=== PATIENT | female | born 1985 | race Caucasian/White ===

== ENCOUNTER 2020-08-10 20:20 | Inpatient (IN) | payer OTHER ==
[~2020-08-10] VITALS: Ht 167.6 cm; Wt 100.3 kg
[2020-08-10 20:38] LABS: Basophils # (auto) 0.1 10 ^3/uL (0-0.2); Basophils % (auto) 1.1 % (0.0-2.0); Eosinophils # (auto) 0.1 10 ^3/uL (0-0.8); Eosinophils % (auto) 1.5 % (0.0-7.0); Hematocrit 38.3 % (36.0-46.0); Hemoglobin 12.8 g/dL (12.2-16.2); Lymphocytes # (auto) 2.6 10 ^3/uL (0.4-5.4); Lymphocytes % (auto) 27.5 % (10.0-50.0); Mean Corpuscular Hemoglobin 28.7 pg (28.0-32.0); Mean Corpuscular Hgb Conc. 33.5 g/dL (32.0-36.0); Mean Corpuscular Volume 85.9 fL (80.0-100.0); Monocytes # (auto) 0.6 10 ^3/uL (0-1.3); Neutrophils # (auto) 6.1 10 ^3/uL (1.6-8.6); Neutrophils % (auto) 63.9 % (37.0-80.0); Nucleated Red Blood Cells % 0.1 %; Platelet Count (auto) 391 10^3/uL (140-450); Red Blood Cells 4.47 10^6/uL (4.0-5.20); Red Cell Distribution Width 14.6 % (11.8-14.3); White Blood Cell 9.6 10^3/uL (4.4-10.8)
[2020-08-10 20:58] LABS: Albumin 3.7 g/dL (3.4-5.0); Calcium 8.6 mg/dL (8.5-10.1); Potassium 3.5 mmol/L (3.5-5.1)
[2020-08-10 21:01] LABS: BUN/Creatinine Ratio 16.3; Bilirubin, Total 0.3 mg/dL (0.2-1.0); Total Protein 7.3 g/dL (6.4-8.2)
[2020-08-10 22:53] LABS: Urine Bacteria FEW /hpf (None Seen); Urine Blood 3+ /uL (Negative); Urine Mucus FEW (None Seen); Urine Specific Gravity 1.023 (1.001-1.035); Urine WBC 51 /hpf (0 - 5)
[2020-08-11] MEDS ORDERED: IOHEXOL 300 MG/ML 100ML BOTTLE IJ ONE (00:49)
[2020-08-11] MEDS ORDERED: cefTRIAXone 1GM/50ML D5W 50 ML IV ONE (02:15)
[2020-08-11] MEDS ORDERED: NITROGLYCERIN 0.4 MG SL TAB SL PRN (02:45)
[2020-08-11] MEDS ORDERED: MORPHINE SULFATE 4 MG/ML SYR/VIAL IV PRN (02:45)
[2020-08-11] MEDS ORDERED: TEMAZEPAM 15 MG CAP PO PRN (02:45)
[2020-08-11] MEDS ORDERED: DOCUSATE SOD 100 MG CAP PO PRN (02:45)
[2020-08-11] MEDS ORDERED: MORPHINE SULF INJ 2 MG/ML SYRINGE 1ML IV PRN (02:45)
[2020-08-11] MEDS: ONDANSETRON HCL 4 MG/2 ML VIAL IV PRN ×2 (05:19→16:25)
[2020-08-11] MEDS: SODIUM CHLOR 0.9% PF (SALINE LOCK) 10ML VIAL/SYR IV SCH ×3 (06:00→21:08)
[2020-08-11] MEDS: cefTRIAXone 1GM/50ML D5W 50 ML IV SCH (09:08)
[2020-08-11 09:09] VITALS: BP 139/82
[2020-08-11] MEDS: MULTIPLE VITAMIN TAB PO SCH (09:09)
[2020-08-11] MEDS: ASCORBIC ACID 500 MG TAB PO SCH ×2 (09:09→21:08)
[2020-08-11] MEDS: ZINC SULFATE 220mg CAP or TAB PO SCH (09:09)
[2020-08-11] MEDS: ENOXAPARIN SOD 40 MG/0.4 ML SYRINGE SC SCH (09:09)
[2020-08-11] MEDS: FAMOTIDINE 20 MG TAB PO SCH ×2 (09:09→21:08)
[2020-08-11] MEDS: HYDROcodone-ACET 5/325MG TAB PO PRN ×2 (09:10→16:25)
[2020-08-11 10:56] LABS: Basophils # (auto) 0.1 10 ^3/uL (0-0.2); Basophils % (auto) 0.5 % (0.0-2.0); Eosinophils # (auto) 0 10 ^3/uL (0-0.8); Eosinophils % (auto) 0.1 % (0.0-7.0); Hematocrit 37.2 % (36.0-46.0); Hemoglobin 12.5 g/dL (12.2-16.2); Lymphocytes # (auto) 0.9 10 ^3/uL (0.4-5.4); Lymphocytes % (auto) 7.9 % (10.0-50.0); Mean Corpuscular Hemoglobin 28.9 pg (28.0-32.0); Mean Corpuscular Hgb Conc. 33.6 g/dL (32.0-36.0); Mean Corpuscular Volume 86.1 fL (80.0-100.0); Monocytes # (auto) 0.5 10 ^3/uL (0-1.3); Monocytes % (auto) 4.6 % (0.0-12.0); Neutrophils # (auto) 9.5 10 ^3/uL (1.6-8.6); Neutrophils % (auto) 86.9 % (37.0-80.0); Platelet Count (auto) 334 10^3/uL (140-450); Red Blood Cells 4.32 10^6/uL (4.0-5.20); Red Cell Distribution Width 14.7 % (11.8-14.3); White Blood Cell 10.9 10^3/uL (4.4-10.8)
[2020-08-11 11:04] LABS: Albumin 3.4 g/dL (3.4-5.0); Calcium 8.5 mg/dL (8.5-10.1); Potassium 3.8 mmol/L (3.5-5.1)
[2020-08-11 11:08] LABS: BUN/Creatinine Ratio 14.1; Bilirubin, Total 0.6 mg/dL (0.2-1.0); Total Protein 7.1 g/dL (6.4-8.2)
[2020-08-11 12:57] VITALS: BP 126/76
[2020-08-11 17:00] VITALS: BP 139/77
[2020-08-11 22:00] VITALS: BP_SYST 120; BP_SYST 127; BP_DIAS 75; BP_DIAS 83
[2020-08-12] MEDS ORDERED: MANNITOL FTV 25% 12.5 GM/50 ML 50 ML IV ONE (01:00)
[2020-08-12] MEDS: SODIUM CHLORIDE 0.9% 1,000 ML IV SCH ×2 (02:29→17:40)
[2020-08-12] MEDS: HYDROcodone-ACET 5/325MG TAB PO PRN (02:50)
[2020-08-12 05:00] VITALS: BP 121/69
[2020-08-12] MEDS: SODIUM CHLOR 0.9% PF (SALINE LOCK) 10ML VIAL/SYR IV SCH ×3 (06:01→22:08)
[2020-08-12 07:22] LABS: Basophils # (auto) 0.1 10 ^3/uL (0-0.2); Basophils % (auto) 1.1 % (0.0-2.0); Eosinophils # (auto) 0.1 10 ^3/uL (0-0.8); Eosinophils % (auto) 1.4 % (0.0-7.0); Hematocrit 37.5 % (36.0-46.0); Hemoglobin 12.6 g/dL (12.2-16.2); Lymphocytes # (auto) 1.8 10 ^3/uL (0.4-5.4); Lymphocytes % (auto) 23.1 % (10.0-50.0); Mean Corpuscular Hemoglobin 28.8 pg (28.0-32.0); Mean Corpuscular Hgb Conc. 33.6 g/dL (32.0-36.0); Mean Corpuscular Volume 85.7 fL (80.0-100.0); Monocytes # (auto) 0.6 10 ^3/uL (0-1.3); Monocytes % (auto) 8.2 % (0.0-12.0); Neutrophils # (auto) 5.1 10 ^3/uL (1.6-8.6); Neutrophils % (auto) 66.2 % (37.0-80.0); Platelet Count (auto) 307 10^3/uL (140-450); Red Blood Cells 4.37 10^6/uL (4.0-5.20); Red Cell Distribution Width 14.7 % (11.8-14.3); White Blood Cell 7.7 10^3/uL (4.4-10.8)
[2020-08-12 07:42] LABS: Potassium 3.9 mmol/L (3.5-5.1)
[2020-08-12 07:51] LABS: Albumin 3.2 g/dL (3.4-5.0); BUN/Creatinine Ratio 12.3; Bilirubin, Total 0.4 mg/dL (0.2-1.0); Calcium 8.5 mg/dL (8.5-10.1); Magnesium 2.5 mg/dL (1.6-2.6); Total Protein 6.7 g/dL (6.4-8.2)
[2020-08-12 08:00] VITALS: BP 125/90
[2020-08-12] MEDS: cefTRIAXone 1GM/50ML D5W 50 ML IV SCH (08:00)
[2020-08-12] MEDS: ACETAMINOPHEN 325 MG TAB PO PRN ×3 (08:01→22:07)
[2020-08-12 09:15] VITALS: BP 125/90
[2020-08-12] MEDS: ZINC SULFATE 220mg CAP or TAB PO SCH (10:13)
[2020-08-12] MEDS: FAMOTIDINE 20 MG TAB PO SCH ×2 (10:13→22:07)
[2020-08-12] MEDS: ENOXAPARIN SOD 40 MG/0.4 ML SYRINGE SC SCH (10:14)
[2020-08-12] MEDS: MULTIPLE VITAMIN TAB PO SCH (10:14)
[2020-08-12] MEDS: ASCORBIC ACID 500 MG TAB PO SCH ×2 (10:14→22:07)
[2020-08-12 12:50] VITALS: BP 122/82
[2020-08-12 17:00] VITALS: BP 128/72
[2020-08-12] MEDS ORDERED: TAMSULOSIN HYDROCHLORIDE 0.4 MG CAP PO SCH (18:00)
[2020-08-12 22:00] VITALS: BP 139/87
[2020-08-13] VITALS (7 sets, daily range): BP systolic 122–137; BP diastolic 8–86
[2020-08-13] MEDS: SODIUM CHLOR 0.9% PF (SALINE LOCK) 10ML VIAL/SYR IV SCH ×2 (06:00→13:12)
[2020-08-13] MEDS: cefTRIAXone 1GM/50ML D5W 50 ML IV SCH (08:35)
[2020-08-13] MEDS: SODIUM CHLORIDE 0.9% 1,000 ML IV SCH (08:39)
[2020-08-13] MEDS: MULTIPLE VITAMIN TAB PO SCH (09:38)
[2020-08-13] MEDS: ENOXAPARIN SOD 40 MG/0.4 ML SYRINGE SC SCH (09:38)
[2020-08-13] MEDS: ZINC SULFATE 220mg CAP or TAB PO SCH (09:38)
[2020-08-13] MEDS: ASCORBIC ACID 500 MG TAB PO SCH (09:38)
[2020-08-13] MEDS: FAMOTIDINE 20 MG TAB PO SCH (09:38)
[2020-08-13] MEDS ORDERED: SODIUM CHLORIDE 0.9% 1,000 ML IV ONE (10:45)
[2020-08-13] MEDS ORDERED: MANNITOL FTV 25% 12.5 GM/50 ML 50 ML IV ONE (10:45)
[2020-08-13] MEDS ORDERED: TAM04C PO (13:21)
[2020-08-13] MEDS ORDERED: LEVO500T31 PO (13:21)
== END 2020-08-13 17:25 | disposition home or self-care (01) | DRG 690 ==
LOC: ER 20:21 → TELE 23:35 → UNDOADMIN 08-11 02:50 → TELE 08-11 02:50 → TELE-WESTW 08-11 08:35 → TELE 08-11 08:35 → TELE-WESTW 08-11 08:51 → UNDODISIN 08-13 17:25
PROVIDERS: ADMIT Nurse Practitioner Family; ATTEND Internal Medicine
DX: N13.6 Pyonephrosis (principal); R65.10 Systemic inflammatory response syndrome (SIRS) of non-infectious origin without acute organ dysfunction; Z20.822 Contact with and (suspected) exposure to COVID-19; B96.20 Unspecified Escherichia coli [E. coli] as the cause of diseases classified elsewhere; I10 Essential (primary) hypertension; E66.9 Obesity, unspecified; Z85.43 Personal history of malignant neoplasm of ovary; Z68.35 Body mass index [BMI] 35.0-35.9, adult; Z87.891 Personal history of nicotine dependence; Z90.710 Acquired absence of both cervix and uterus
CPT/HCPCS: 36415; 74177; 76775; 80053; 81001; 81025; 83036; 83690; 83735; 85025; 87040; 87086; 87088; 87186; 87426; 96365; 96366; 96372; 96375; G0378; J0696; J2405